=== PATIENT | female | born 1985 | race Caucasian/White ===

== ENCOUNTER → 2017-10-29 11:47 | Outpatient (CLI) | payer BC, SELFPAY ==
[2017-10-29 13:36] LABS: Group B Strep DNA By PCR Negative (Negative); Internal Control PASS; Probe Check PASS; Specimen Processing Control PASS
== END ==
PROVIDERS: Visit Provider Obstetrics & Gynecology Maternal & Fetal Medicine
DX: Z36.9 Encounter for antenatal screening, unspecified (principal); Z88.0 Allergy status to penicillin
CPT/HCPCS: 87081; 87653